=== PATIENT | female | born 1965 | race Caucasian/White ===

== ENCOUNTER 2022-06-08 14:31 | Inpatient (IN) ==
[2022-06-08] MEDS ORDERED: SODIUM CHLORIDE 0.9% 1000ML 1,000 ML IV ONE (14:53)
--- NOTE | 2022-06-08 15:05 | Emergency Department Note ---
ED Provider Note History of Present Illness Chief Complaint: Leg Injury/Pain Stated Complaint: JULIOBILE INFECTED R LEG Time Seen by Provider: 06/08/22 14:41 This is a 57-year-old female with a history of diabetes, high cholesterol, accompanied by her who presents with pain, redness, and swelling to her right lower leg. She noticed this last night and scratched it. This morning when she woke up she had a fever of 101 and noticed a significant amount of redness to the leg. She describes it as "tight" and somewhat painful when she walks. She also endorses some pain on the inner part of her thigh that started last night. She took some Tylenol for her fever this morning which seemed to improve it. She has had a little bit of a cough and congestion over the past few weeks but no new upper respiratory symptoms. She denies any chest pain or shortness of breath. She is not immunocompromised. Denies any new numbness or tingling in her extremities. Denies any history of neuropathy. Denies any other injuries to this leg. Home Medications Medication Instructions Recorded Confirmed Type atorvastatin 10 mg tablet 10 mg PO HS 06/08/22 06/08/22 History levothyroxine 125 mcg tablet 125 mcg PO DAILYBB 06/08/22 06/08/22 History metformin 750 mg tablet,extended 750 mg PO DAILY 06/08/22 06/08/22 History release 24 hr Allergies Allergy/AdvReac Type Severity Reaction Status Date / Time No Known Allergies Allergy Unverified 06/08/22 17:57 Past Med/Surg History Medical History Diabetes Hypercholesterolemia Surgical History No pertinent past surgical history Social History Smoking Status: Never smoker Preferred Language: Georgian Feels Safe at Home: Yes Physical Exam Vital Signs Vital Signs - 24 hr 06/08/22 14:35 06/08/22 14:53 06/08/22 17:00 Temperature 98.2 F 98.2 F Temperature Source Oral Oral Pulse Rate 111 H Pulse Rate [Apical] 101 H 103 H Pulse Rhythm [Apical] Regular Regular Pulse Strength [Apical] Normal Normal Respiratory Rate 17 20 20 Respiratory Effort / Characteristics Non-Labored Spontaneous Non-Labored Non-Labored Respiratory Depth Normal Normal Normal Respiratory Pattern Regular Regular Blood Pressure 159/72 H Blood Pressure [Right Arm] 180/86 H Blood Pressure Mean 101 Blood Pressure Mean [Right Arm] 117 Blood Pressure Position Sitting Pulse Oximetry 97 97 97 Oxygen Delivery Method Room Air Room Air Room Air Sepsis Recent Fever Within 48 Hours No Sepsis New/Unexplained Change in Mental Status No Sepsis Action Taken by Nursing No Action Required CONSTITUTIONAL: Well developed, well nourished, in no acute distress. HEAD: Normocephalic, atraumatic. EYES: conjunctivae normal, extraocular muscles intact. ENMT: External ears normal. Nose with normal external appearance, no congestion. Oral mucous membranes moist. Oropharynx normal. NECK: Full active range of motion. LYMPHATIC: No inguinal adenopathy RESPIRATORY: Breathing unlabored and symmetric. Lungs clear to auscultation bilaterally. No wheeze, rales, or rhonchi. CARDIOVASCULAR: Tachycardic rate and regular rhythm. No murmurs, rubs, or gallops. DP pulses 2+ bilaterally ABDOMEN: Normal bowel sounds. Soft, nontender, no peritonitis. No masses. MUSCULOSKELETAL: Right lower extremity: 1+ pitting edema in lower leg. The proximal leg is slightly more swollen compared to the contralateral. There is erythema, warmth, and tenderness with irregular borders located on the lower leg from the distal knee to the ankle extending circumferentially around the ankle region. This does not extend over the knee. Knee and ankle and toes with full range of motion. There is some tenderness in the medial thigh. SKIN: [place], warm, dry. NEUROLOGIC: Awake, alert, oriented. Gaze is conjugate. Face symmetric, speech normal. Moves head and all four extremities spontaneously. Sensation intact in bilateral lower extremities. PSYCHIATRIC: Appropriate. Normal affect Course Administered Medications Discontinued Medications Sodium Chloride (Nss 1000ml) 1,000 mls @ 999 mls/hr IV .Q1H1M ONE Stop: 06/08/22 15:53 Last Infusion: 06/08/22 16:31 Dose: 0 mls/hr Documented By: RSErica Admin: 06/08/22 15:33 Dose: 999 mls/hr Documented By: RSErica Sodium Chloride (Nss) 500 mls @ 999 mls/hr IV .Q31M ONE Stop: 06/08/22 17:13 Last Infusion: 06/08/22 17:21 Dose: 0 mls/hr Documented By: RSErica Admin: 06/08/22 16:54 Dose: 999 mls/hr Documented By: EMIR Ceftriaxone Sodium (Rocephin) 2,000 mg in 70 mls @ 140 mls/hr IV NOW STA Stop: 06/08/22 17:28 Last Infusion: 06/08/22 17:40 Dose: 0 mls/hr Documented By: Admin: 06/08/22 17:09 Dose: 140 mls/hr Documented By: EMIR Medical Decision Making Differential Diagnosis Cellulitis, DVT, vasculitis, necrotizing fasciitis, erythema migrans, sepsis, bacteremia, upper respiratory infection, PE, osteomyelitis, among other pathology Laboratory Data 06/08/22 15:34 06/08/22 15:34 Lab Results 06/08/22 06/08/22 06/08/22 Range/Units 15:34 15:34 15:34 WBC 17.49 H (4.8-10.8) K/ul RBC 4.56 (4.20-5.40) M/uL Hgb 13.1 (12.0-16.0) g/dl Hct 40.1 (37.0-47.0) % MCV 87.9 (80.0-100.0) fL MCH 28.7 (25.0-34.0) pg MCHC 32.7 (32.0-36.0) g/dL RDW Std Deviation 42.2 (36.4-46.3) fL RDW Coeff of Kam 13.2 (11.5-14.5) % Plt Count 204 (130-400) K/uL MPV 10.2 (9.4-12.4) fL Immature Gran % (Auto) 0.7 % Neut % (Auto) 89.1 % Lymph % (Auto) 5.4 % [place] % (Auto) 4.5 % Eos % (Auto) 0.1 % Baso % (Auto) 0.2 % Neut # (Auto) 15.59 H (1.40-6.50) K/uL Lymph # (Auto) 0.94 L (1.2-3.4) K/uL [place] # (Auto) 0.78 H (0.11-0.59) K/uL Eos # (Auto) 0.02 (0-0.50) K/uL Baso # (Auto) 0.03 (0-0.2) K/uL Immature Gran # (Auto) 0.13 (0.01-0.20) K/uL Sodium 136 (136-145) mmol/L Potassium 3.4 L (3.5-5.1) mmol/L Chloride 102 (98-107) mmol/L Carbon Dioxide 25 (21-32) mmol/L Anion Gap 9 (3-11) BUN 18 (6-23) mg/dl Creatinine 0.91 (0.6-1.2) mg/dl Est Cr Clr Drug Dosing 82.2 ml/min Est GFR ( Amer) 81.2 ml/min Est GFR (Non-Af Amer) 70.0 ml/min BUN/Creatinine Ratio 19.8 (10-20) Glucose 160 H (70-99(Fasting)) mg/dl Lactate (0.4-2.0) mmol/L Calcium 9.2 (8.5-10.1) mg/dl Total Bilirubin 0.7 (0.2-1.0) mg/dl AST 13 (13-39) U/L ALT 13 (7-52) U/L Alkaline Phosphatase 70 (34-104) U/L Total Protein 7.2 (6.0-8.3) gm/dl Albumin 4.4 (3.4-5.0) gm/dl Globulin 2.8 (2.5-4.0) gm/dl Albumin/Globulin Ratio 1.6 (0.9-2) Procalcitonin 0.38 (0-0.5) ng/ml 06/08/22 Range/Units 15:34 WBC (4.8-10.8) K/ul RBC (4.20-5.40) M/uL Hgb (12.0-16.0) g/dl Hct (37.0-47.0) % MCV (80.0-100.0) fL MCH (25.0-34.0) pg MCHC (32.0-36.0) g/dL RDW Std Deviation (36.4-46.3) fL RDW Coeff of Kam (11.5-14.5) % Plt Count (130-400) K/uL MPV (9.4-12.4) fL Immature Gran % (Auto) % Neut % (Auto) % Lymph % (Auto) % [place] % (Auto) % Eos % (Auto) % Baso % (Auto) % Neut # (Auto) (1.40-6.50) K/uL Lymph # (Auto) (1.2-3.4) K/uL [place] # (Auto) (0.11-0.59) K/uL Eos # (Auto) (0-0.50) K/uL Baso # (Auto) (0-0.2) K/uL Immature Gran # (Auto) (0.01-0.20) K/uL Sodium (136-145) mmol/L Potassium (3.5-5.1) mmol/L Chloride (98-107) mmol/L Carbon Dioxide (21-32) mmol/L Anion Gap (3-11) BUN (6-23) mg/dl Creatinine (0.6-1.2) mg/dl Est Cr Clr Drug Dosing ml/min Est GFR ( Amer) ml/min Est GFR (Non-Af Amer) ml/min BUN/Creatinine Ratio (10-20) Glucose (70-99(Fasting)) mg/dl Lactate 1.5 (0.4-2.0) mmol/L Calcium (8.5-10.1) mg/dl Total Bilirubin (0.2-1.0) mg/dl AST (13-39) U/L ALT (7-52) U/L Alkaline Phosphatase (34-104) U/L Total Protein (6.0-8.3) gm/dl Albumin (3.4-5.0) gm/dl Globulin (2.5-4.0) gm/dl Albumin/Globulin Ratio (0.9-2) Procalcitonin (0-0.5) ng/ml Imaging Data Radiologist's Impression: Venous Doppler Study 06/08/22 14:53 US venous doppler LE RT HISTORY: 57 years-old Female pain swelling and redness acute pain and swelling of the right lower extremity COMPARISON: None TECHNIQUE: Multiple real-time sonographic images of the right lower extremity deep venous structures were obtained assessing grayscale appearance, color and spectral flow. FINDINGS: Normal flow, compressibility, phasicity and augmentation. Indeterminate 3.4 x 1.1 cm right inguinal chain lymph node with fatty hilum, likely benign. Mild nonspecific subcutaneous edema. IMPRESSION: No sonographic evidence of deep venous thrombosis. ACT 112: Negative or not required by law. The above report was generated using voice recognition software. It may contain grammatical, syntax or spelling errors. Electronically signed by: Familia Velazquez M.D. 06/08/2022 4:38 PM MDM Narrative This is a 57-year-old female who presents to the emergency department with pain, redness, swelling to the right lower leg that began yesterday as an itchy area that she admits to scratching yesterday. She endorses a fever of 101 this morning. On initial exam, she is overall well-appearing in no acute distress. Her heart rate initially is 110 and she remained tachycardic during my evaluation. Denies any chest pain or shortness of breath, oxygen saturation 97% on room air. She does have a large area of erythema, warmth, tenderness, and edema to the lower leg, as well as some tenderness in the medial thigh. Neurovascularly intact. She is afebrile here though took Tylenol earlier today. Differential diagnosis considered as above. An IV was inserted, IV fluids were initiated. Blood cultures were ordered. Patient declined anything for pain. An ultrasound of the right lower extremity was obtained demonstrating no DVT however there was an indeterminate 3.4 x 1.1 cm right inguinal chain lymph node with fatty hilum, likely benign with some mild nonspecific subcutaneous edema. Question if lymph nodes could be reactive in nature and if this could be contributing to her right proximal medial thigh pain Labs show a leukocytosis at 17.49. Glucose 160. Normal renal function. No electrolyte disturbance. Lactate is normal Despite IV fluids, patient remained tachycardic with a heart rate of 101 at time of reevaluation. IV ceftriaxone administered for suspected cellulitis. Given her history of diabetes, persistent tachycardia despite sepsis level fluid administration, rapid progression, fever this morning, and leukocytosis of 17.49, admission to the hospital was discussed and recommended. Patient was agreeable with this plan. I discussed this case with Jennyfer Montano PA-C with the [facility] hospitalist service who will admit the patient for ongoing management. Impression Cellulitis of leg, right, Leukocytosis Discharge Plan Visit Data Chief Complaint: Leg Injury/Pain Stated Complaint: POSSBILE INFECTED R LEG ED Provider: Serg Oropeza ED Midlevel Provider: Juan Manuel Smith Discharge Problem: Cellulitis of leg, right, Leukocytosis Patient Disposition: Admitted As Inpatient Condition: Fair Forms Stand Alone Forms: My [facility] Prescriptions Prescriptions: No Action atorvastatin 10 mg tablet 10 mg PO HS levothyroxine 125 mcg tablet 125 mcg PO DAILYBB metformin 750 mg tablet extended release 24 hr 750 mg PO DAILY Referrals Referrals: PCP,NO [Physician] -
[2022-06-08 15:54] LABS: Basophils # (auto) 0.03 K/uL (0-0.2); Basophils % (auto) 0.2 %; Eosinophils # (auto) 0.02 K/uL (0-0.50); Eosinophils % (auto) 0.1 %; Hematocrit (blood only) 40.1 % (37.0-47.0); Hemoglobin 13.1 g/dl (12.0-16.0); Immature Granulocytes # (auto) 0.13 K/uL (0.01-0.20); Immature Granulocytes % (auto) 0.7 %; Lymphocytes # (auto) 0.94 K/uL (1.2-3.4); Lymphocytes % (auto) 5.4 %; Mean Corpuscular Hemoglobin 28.7 pg (25.0-34.0); Mean Corpuscular Hgb Conc 32.7 g/dL (32.0-36.0); Mean Corpuscular Volume 87.9 fL (80.0-100.0); Mean Platelet Volume 10.2 fL (9.4-12.4); Monocytes # (auto) 0.78 K/uL (0.11-0.59); Monocytes % (auto) 4.5 %; Neutrophils # (auto) 15.59 K/uL (1.40-6.50); Neutrophils % (auto) 89.1 %; Platelet Count 204 K/uL (130-400); RDW Coefficient of Variation 13.2 % (11.5-14.5); RDW Standard Deviation 42.2 fL (36.4-46.3); Red Blood Count 4.56 M/uL (4.20-5.40); White Blood Count 17.49 K/ul (4.8-10.8)
[2022-06-08 16:08] LABS: Albumin Globulin Ratio 1.6 (0.9-2); Albumin Level 4.4 gm/dl (3.4-5.0); BUN Creatinine Ratio 19.8 (10-20); Bilirubin,Total 0.7 mg/dl (0.2-1.0); Calcium 9.2 mg/dl (8.5-10.1); Creatinine Clr Calc Pharmacy 82.2 ml/min; Est GFR (African American) 81.2 ml/min; Globulin 2.8 gm/dl (2.5-4.0); Potassium 3.4 mmol/L (3.5-5.1); Total Protein 7.2 gm/dl (6.0-8.3)
--- NOTE | 2022-06-08 16:40 | Ultrasound Report ---
US venous doppler LE RT HISTORY: 57 years-old Female pain swelling and redness acute pain and swelling of the right lower ex tremity COMPARISON: None TECHNIQUE: Multiple real-time sonographic images of the right lower extremity deep venous structures were obtained assessing grayscale appearance, color and spectral flow. FINDINGS: Normal flow, compressibility, phasicity and augmentation. Indeterminate 3.4 x 1.1 cm right inguinal c rose lymph node with fatty hilum, likely benign. Mild nonspecific subcutaneous edema. IMPRESSION: No sonographic evidence of deep venous thrombosis. ACT 112: Negative or not required by law. The above report was generated using voice recognition software. It may contain grammatical, syntax o r spelling errors. Electronically signed by: Familia Velazquez M.D. 06/08/2022 4:38 PM
[2022-06-08] MEDS ORDERED: SODIUM CHLORIDE 0.9% 500 ML IV ONE (16:43)
[2022-06-08] MEDS ORDERED: cefTRIAXone SODIUM 2,000 MG/70 ML BAG IV STA (16:59)
--- NOTE | 2022-06-08 17:44 | History & Physical Report ---
Date of Service June 08, 2022 Assessment & Plan (1) Sepsis: (2) Cellulitis of leg, right: (3) Leukocytosis: Plan: - Admit to med surg with tele - Meets sepsis with fever of 101, leukocytosis 17.49, rapidly progressed overnight - Follow blood cultures, lactate 1.5 on admission, procal 0.38 - Given ceftriaxone in the ER, will switch to cefepime IV and vanc IV given . Given 1.5 L NSS in ER. - Cr./BUN stable - BP noted to be elevated without hx of hypertension, possibly situational vs under rador and not known about? Will stop IVFs now and monitor. Will place IV hydralazine prn for overnight. Consider initiation of low dose lisinopril if hypertensions persists. - Check MRSA nasal swab and will dc if negative - Skin region affected outlined at bedside to monitor for improvement (4) Diabetes: Plan: - Check A1C, hold home metformin, will place on ISS with accuchecks achs (5) Hypercholesterolemia: Plan: - Check lipid panel with am labs, cont atorvastatin HS (6) Morbid obesity: Plan: - BMI of 46.7, diet and exercise to be encouraged throughout hospital stay and at time of dischage (7) Hypothyroidism: Plan: - Cont levothyroxine, check TSH DVT ppx: teds, scds, ambulatory CODE: Full Dispo: From home, likely to remain in the hospital x 1-2 days A total of 75 minutes were spent with greater than 50% of that time face to face with the patient, personally reviewing all current laboratories, imaging studies, past medication reconciliation, outpatient chart review, and discussion with specialists to collaborate care for the patient with attending. Please see attending documentation for corrections and/or additions. History of Present Illness Chief Complaint: RLE redness Primary Care Provider: Amie Zapata This is a 57-year-old female with PMHx of DM type II, obesity with BMI of 46.7, hypothyroidism, HLD who presents to the emergency room with acute onset of right lower extremity redness, swelling and pain. She notes that last evening her skin was a bit itchy, and so was scratching at her right lower leg. She did not notice at that point time if it was red and was not painful. This morning she noticed her leg with worsening redness which then progressed to encompass the majority of her moreno as well as the back of her calf muscle. Her pain is mild. She had a fever of Tmax 101 today, and took ibuprofen 600 mg as well as Tylenol 1500 mg. She could ambulate into the ER but describes mild pain associated with weightbearing due to the swelling and in her leg. She has never had a bout of cellulitis before. To her knowledge her glucose has been in good control. Pts is with her at bedside and supports the history. WBC count is 17.49 on admission. Doppler ultrasound is negative for DVT in the RLE. Currently afebrile, tachycardic with heart rate in the low 100s. Surgical history: History of 33 years ago, no other surgical procedures Family history: Mother: ovarian and breast cancer at early age s/p large ovarian tumor resection, A&W Father: heart disorder, pacemaker insertion in his 70s, A&W Social history: Patient denies any tobacco use, alcohol use illicit drug or marijuana use in the past. Lives with her in [place], states that she moved to the area about 3 years ago and continues to follow with PCP and do boys as she has not had any medical issues/needs. Allergies Allergy/AdvReac Type Severity Reaction Status Date / Time No Known Allergies Allergy Unverified 06/08/22 17:57 Home Medications Medication Instructions Recorded Confirmed Type atorvastatin 10 mg tablet 10 mg PO HS 06/08/22 06/08/22 History levothyroxine 125 mcg tablet 125 mcg PO DAILYBB 06/08/22 06/08/22 History metformin 750 mg tablet,extended 750 mg PO DAILY 06/08/22 06/08/22 History release 24 hr Past Med/Surg History Medical History (Updated 06/08/22 @ 19:11 by Ronel Montano PA-C) Diabetes Hypercholesterolemia Surgical History (Updated 06/08/22 @ 18:03 by Ronel Montano PA-C) Hx of section No pertinent past surgical history Family History (Updated 06/08/22 @ 18:04 by Ronel Montano PA-C) Father Heart disease Mother Breast cancer Ovarian cancer Social History (Updated 06/08/22 @ 18:05 by Ronel Montano PA-C) Smoking Status: Never smoker Do You Dip or Chew Tobacco: No; Hx Alcohol Use: No Hx Substance Use: No Preferred Language: Maltese Communication Ability: Effective Jet Worker Required: No Beliefs That Will Affect Care: None Current Living Situation: Spouse and Family Feels Safe at Home: Yes Safety Concerns: Feels Safe At This Time Assistive Devices: None Review of Systems Review of Systems: Constitutional: + fever as per HPI, + chills, no sweats Eyes: No diplopia, no worsening or blurred vision ENT: normal hearing, no trouble swallowing Respiratory: No cough, sputum, dyspnea at rest or on exertion Cardiovascular: No chest pain, tightness or palpitations Abdomen: No pain, nausea, vomiting, diarrhea or constipation Musculoskeletal: No joint pain, calf pain, swelling Neurologic: No weakness, numbness/tingling, or balance problems Psychiatric: No anxiety or depression Skin: No rash or itch Physical Exam Physical Exam: General: awake, alert, no apparent distress, morbidly obese with BMI of 46.7 Head: Normocephalic, atraumatic ENT: PERRL, EOMI, no pharyngeal exudate, mucous membranes moist Chest: Clear to auscultation, on room air, no adventitious breath sounds Cardiac: Regular rate and rhythm, no murmur, no JVD, normal peripheral pulses, good capillary refill Abdominal: NABS x 4 quadrants, soft, nondistended, nontender to palpation, no rebound or guarding Extremities: RLE with erythema extending over the moreno and around the calf, involves the medial ankle slightly, does not involve the foot, and does not extend above the knee. No open area available to culture. Normal inspection, no peripheral edema or erythema, calfs nontender to palpation Psych: Normal mood and affect Neuro: AAO x 3, strength intact bilaterally and rated 5/5, no motor deficits, speech is clear, no peripheral sensory deficits Results & Data Results & Data ([facility]) Vital Signs (Past 12 Hours) Vital Signs Temp Pulse Pulse Resp BP BP Pulse Ox 06/08/22 17:00 103 H 20 180/86 H 97 06/08/22 14:53 36.8 C 101 H 20 97 06/08/22 14:35 36.8 C 111 H 17 159/72 H 97 O2 Del Method 06/08/22 17:00 Room Air 06/08/22 14:53 Room Air 06/08/22 14:35 Room Air Laboratory Results 06/08/22 15:34 Aerobic Blood Culture - Pending Blood Anaerobic Blood Culture - Pending 06/08/22 15:34 Aerobic Blood Culture - Pending Blood Anaerobic Blood Culture - Pending 06/08/22 06/08/22 06/08/22 15:34 15:34 15:34 WBC RBC Hgb Hct MCV MCH MCHC RDW Std Deviation RDW Coeff of Kam Plt Count MPV Immature Gran % (Auto) Neut % (Auto) Lymph % (Auto) [place] % (Auto) Eos % (Auto) Baso % (Auto) Neut # (Auto) Lymph # (Auto) [place] # (Auto) Eos # (Auto) Baso # (Auto) Immature Gran # (Auto) Sodium 136 Potassium 3.4 L Chloride 102 Carbon Dioxide 25 Anion Gap 9 BUN 18 Creatinine 0.91 Est Cr Clr Drug Dosing 82.2 Est GFR ( Amer) 81.2 Est GFR (Non-Af Amer) 70.0 BUN/Creatinine Ratio 19.8 Glucose 160 H Lactate 1.5 Calcium 9.2 Total Bilirubin 0.7 AST 13 ALT 13 Alkaline Phosphatase 70 Total Protein 7.2 Albumin 4.4 Globulin 2.8 Albumin/Globulin Ratio 1.6 Procalcitonin 0.38 06/08/22 15:34 WBC 17.49 H RBC 4.56 Hgb 13.1 Hct 40.1 MCV 87.9 MCH 28.7 MCHC 32.7 RDW Std Deviation 42.2 RDW Coeff of Kam 13.2 Plt Count 204 MPV 10.2 Immature Gran % (Auto) 0.7 Neut % (Auto) 89.1 Lymph % (Auto) 5.4 [place] % (Auto) 4.5 Eos % (Auto) 0.1 Baso % (Auto) 0.2 Neut # (Auto) 15.59 H Lymph # (Auto) 0.94 L [place] # (Auto) 0.78 H Eos # (Auto) 0.02 Baso # (Auto) 0.03 Immature Gran # (Auto) 0.13 Sodium Potassium Chloride Carbon Dioxide Anion Gap BUN Creatinine Est Cr Clr Drug Dosing Est GFR ( Amer) Est GFR (Non-Af Amer) BUN/Creatinine Ratio Glucose Lactate Calcium Total Bilirubin AST ALT Alkaline Phosphatase Total Protein Albumin Globulin Albumin/Globulin Ratio Procalcitonin Diagnostic Findings Venous Doppler Study 06/08/22 14:53 US venous doppler LE RT HISTORY: 57 years-old Female pain swelling and redness acute pain and swelling of the right lower extremity COMPARISON: None TECHNIQUE: Multiple real-time sonographic images of the right lower extremity deep venous structures were obtained assessing grayscale appearance, color and spectral flow. FINDINGS: Normal flow, compressibility, phasicity and augmentation. Indeterminate 3.4 x 1.1 cm right inguinal chain lymph node with fatty hilum, likely benign. Mild nonspecific subcutaneous edema. IMPRESSION: No sonographic evidence of deep venous thrombosis. ACT 112: Negative or not required by law. The above report was generated using voice recognition software. It may contain grammatical, syntax or spelling errors. Electronically signed by: Familia Velazquez M.D. 06/08/2022 4:38 PM Code Status & VTE Plan Code Status Full code - discussed with patient at bedside along with . Supervising Physician Co-Signing Physician Notes Patient was seen and examined independently. Chart reviewed. Case discussed with CHRISTOPHE. Agree with assessment and plan as above. Exam looks most consistent with strep cellulitis. Can likely de-escalate in next 24-48 hours once sepsis resolves. (3) Leukocytosis Leukocytosis type: unspecified Qualified Code(s): D72.829 - Elevated white blood cell count, unspecified
[2022-06-08] MEDS ORDERED: VANCOMYCIN CONSULT ACTIVE PRN (17:50)
[2022-06-08 18:14] LABS: Influenza A virus by PCR Negative (Neg); Influenza B virus by PCR Negative (Neg); RSV by PCR Negative (Neg); SARS CoV2 RNA(COVID-19) Ceph NEGATIVE (Negative)
[2022-06-08] MEDS ORDERED: SODIUM CHLORIDE 0.9% 1000ML 1,000 ML IV SCH (19:00)
[2022-06-08] MEDS ORDERED: VANCOMYCIN HCL 2,250 MG in SODIUM CHLORIDE 0.9% 500 ML IV ONE (19:30)
[2022-06-08] MEDS ORDERED: CEFEPIME 2,000 MG in SYRINGE 0 ML IV ONE (19:30)
[2022-06-08] MEDS ORDERED: hydrALAZINE HCL 20 MG/ML VIAL IV PRN (19:51)
[2022-06-08] MEDS ORDERED: CARBOHYDRATES FOR HYPOGLYCEMIA PO PRN (21:43)
[2022-06-08] MEDS ORDERED: GLUCOSE 40% GEL 15 GM TUBE PO PRN (21:43)
[2022-06-08] MEDS ORDERED: DEXTROSE 50% 50 ML SYRINGE IV PRN (21:43)
[2022-06-08] MEDS ORDERED: ONDANSETRON INJ 2 MG/ML 2 ML VIAL IV PRN (21:43)
[2022-06-08] MEDS ORDERED: GLUCOSE 10 TAB/TUBE PO PRN (21:43)
[2022-06-08] MEDS ORDERED: GLUCAGON FOR INJ 1 MG VIAL SQ PRN (21:43)
[2022-06-08] MEDS: ACETAMINOPHEN 325 MG TAB PO PRN (22:16)
[2022-06-08] MEDS: ATORVASTATIN 10 MG TAB PO SCH (22:16)
[2022-06-08] MEDS: INSULIN ASPART PER UNIT SC SCH (22:16)
[2022-06-09] MEDS: LEVOTHYROXINE SODIUM 125 MCG TABLET PO SCH (06:08)
[2022-06-09] MEDS: ACETAMINOPHEN 325 MG TAB PO PRN ×4 (06:10→23:38)
[2022-06-09 07:31] LABS: Calcium 8.6 mg/dl (8.5-10.1); Magnesium 1.8 mg/dl (1.7-2.4); Potassium 3.6 mmol/L (3.5-5.1)
[2022-06-09 07:37] LABS: BUN Creatinine Ratio 17.9 (10-20); Chol HDL Ratio 2.6 (0-5); Creatinine Clr Calc Pharmacy 112.5 ml/min; Est GFR (African American) 113.1 ml/min; Est GFR (Non-African American) 97.6 ml/min; Phosphorus 1.7 mg/dl (2.5-4.9)
[2022-06-09] MEDS: CEFEPIME 2,000 MG in SYRINGE 0 ML IV SCH ×2 (07:51→20:17)
[2022-06-09] MEDS: INSULIN ASPART PER UNIT SC SCH ×2 (08:35→11:42)
[2022-06-09 09:02] LABS: Hematocrit (blood only) 38.4 % (37.0-47.0); Hemoglobin 12.6 g/dl (12.0-16.0); Mean Corpuscular Hemoglobin 29.1 pg (25.0-34.0); Mean Corpuscular Hgb Conc 32.8 g/dL (32.0-36.0); Mean Corpuscular Volume 88.7 fL (80.0-100.0); Mean Platelet Volume 10.9 fL (9.4-12.4); Platelet Count 194 K/uL (130-400); Platelet Estimate Normal (Normal); RDW Coefficient of Variation 13.3 % (11.5-14.5); RDW Standard Deviation 43.1 fL (36.4-46.3); Red Blood Count 4.33 M/uL (4.20-5.40)
[2022-06-09 09:03] LABS: Estimated Average Glucose 151 mg/dl; Hemoglobin A1C 6.9 % (4.5-5.6)
[2022-06-09] MEDS ORDERED: VANCOMYCIN HCL 1,250 MG in SODIUM CHLORIDE 0.9% 250 ML IV SCH (10:00)
[2022-06-09] MEDS: POT PHOSPHATE MONOBASIC W/ SOD TAB PO SCH ×4 (10:15→20:21)
--- NOTE | 2022-06-09 13:56 | Pharmacy Report ---
Pharmacy PK ABX Note - Date of Service June 09, 2022 - Assessment and Plan Assessment 57 year old F receiving vancomycin/cefepime for treatment of cellulitis, possible sepsis. Pertinent microbiologic data includes: blood cultures pending, leukocytosis, tmx 38. Day # 2 of antimicrobial therapy. Plan Vancomycin * Loading dose: 2250 mg IV x 1 * Maintenance dose: 1250 mg IV every 12 hours * Regimen is predicted to achieve target AUC/LUPIS of 400-600 mg/L.hr * Random level ordered for 3/1 AM Pharmacy will continue to follow and will adjust dose/frequency as necessary. Thank you. Pharmacy has transitioned to AUC monitoring for vancomycin. AUC/LUPIS is the preferred PK/PD target and is associated with decreased risk of nephrotoxicity compared to traditional trough targets.
--- NOTE | 2022-06-09 14:36 | Hospitalist Progress Note ---
Date of Service June 09, 2022 Assessment & Plan (1) Sepsis: Plan: improved with IVF and broad spectrum abx. (2) Cellulitis of leg, right: Plan: - Met sepsis criteria with fever of 101, leukocytosis 17.49, rapidly progressed overnight - Follow blood cultures, lactate 1.5 on admission, procal 0.38 - Given ceftriaxone in the ER, will switch to cefepime IV and vanc IV given . Given 1.5 L NSS in ER. - Cr./BUN stable - BP noted to be elevated without hx of hypertension, possibly situational--> IVF were then stopped. Consider initiation of low dose lisinopril if hypertensions persists. -there is some natural spread along the lymph channels into the groin as the infection is being cleared. This is not a "worsening" of the cellulitis. Cont cefepime and stop vanc as she is MRSA negative. (3) Diabetes: Plan: - Check A1C, hold home metformin, patient prefers to avoid insulin at this time. Cont BSG checks and limiting carbohydrates with meals. (4) Hypercholesterolemia: Plan: chronic, stable. Cont home medications. (5) Morbid obesity: Plan: - BMI of 46.7, diet and exercise to be encouraged throughout hospital stay and at time of dischage (6) Hypophosphatemia: Plan: Oral replacement given today. Repeat level in am. (7) Hypothyroidism: Plan: chronic, stable, cont home levothyroxine. DVT ppx: Lovenox CODE: Full Dispo: From home, likely to remain in the hospital x 1-2 days, prefer 24 hours fever free prior to discharge. Connie Boswell DO [facility] Hospitalist Admission and Anticipated Discharge Date Admission Date: June 08, 2022 Subjective 57 yo F with RLE cellulitis Thinks it is from having dry skin and scratching around her lower leg. She is still febrile this am but reports feeling somewhat better on therapy. She is eating and otherwise reports no issues. Review of Systems Review of Systems: All systems were reviewed and negative except as indicated above. Physical Exam Physical Exam: CONSTITUTIONAL: obese, vitals as above, generally well-appearing, NAD EYES: normal conjunctivae, no scleral icterus ENT: external ear and nose normal, MMM NECK: trachea midline RESPIRATORY: clear to auscultation bilaterally, no crackles, rales or wheezes, normal respiratory effort CARDIOVASCULAR: regular rate and rhythm, S1 and 2 heard without murmurs, gallops or rubs, no JVD, no peripheral edema CHEST: inspection of chest was normal GASTROINTESTINAL: normal bowel sounds, soft, nontender, ND, no guarding MUSCULOSKELETAL: strength 5/5 throughout, head is normocephalic and atraumatic SKIN: warm and dry, spreading erythema along the medial right leg up into the groin. RLE with larger area of warm erythematous skin that is irritated with no clear breakdown of the skin both anterior ly and posteriorly. NEUROLOGIC: CN 2-12 grossly intact, no sensory deficit, normal cognition, normal speech, no tremor PSYCHIATRIC: alert cooperative and oriented to person, place and time. Results & Data Results & Data ([facility]) Vital Signs (Past 12 Hours) Vital Signs Temp Pulse Pulse Resp BP Pulse Ox Pulse Ox 06/09/22 13:00 95 06/09/22 11:27 36.6 C 95 H 18 116/74 96 06/09/22 09:00 95 06/09/22 07:27 38.0 C H 108 H 18 137/81 95 06/09/22 06:59 108 H 06/09/22 04:00 36.9 C 105 H 18 129/74 96 O2 Del Method O2 Del Method 06/09/22 13:00 Room Air 06/09/22 11:27 Room Air 06/09/22 09:00 Room Air 06/09/22 07:27 Room Air 06/09/22 06:59 06/09/22 04:00 Room Air Laboratory Results Short CBC 06/08/22 06/09/22 Range/Units 15:34 07:03 WBC 17.49 H 15.70 H (4.8-10.8) K/ul Hgb 13.1 12.6 (12.0-16.0) g/dl Hct 40.1 38.4 (37.0-47.0) % Plt Count 204 194 (130-400) K/uL BMP 06/08/22 06/09/22 15:34 07:03 Sodium 136 134 L Potassium 3.4 L 3.6 Chloride 102 104 Carbon Dioxide 25 22 BUN 18 12 Creatinine 0.91 0.67 Glucose 160 H 164 H Calcium 9.2 8.6 Liver Function 06/08/22 Range/Units 15:34 Total Bilirubin 0.7 (0.2-1.0) mg/dl AST 13 (13-39) U/L ALT 13 (7-52) U/L Alkaline Phosphatase 70 (34-104) U/L Albumin 4.4 (3.4-5.0) gm/dl Medications Administered Current Inpatient Medications Acetaminophen (Acetaminophen 325 Mg Tab) 650 mg PO Q4H PRN PRN Reason: Moderate Pain (Scale 4, 5, 6) Stop: 07/08/22 21:42 Last Admin: 06/09/22 12:53 Dose: 650 mg Atorvastatin Calcium (Atorvastatin 10 Mg Tab) 10 mg PO HS LULI Stop: 07/08/22 20:59 Last Admin: 06/08/22 22:16 Dose: 10 mg Dextrose (Dextrose 50% 50 Ml Syringe) 25 - 50 ml IV UD PRN; Protocol PRN Reason: Hypoglycemia Protocol Stop: 07/08/22 21:42 Glucagon (Glucagon For Inj 1 Mg Vial) 1 mg SQ UD PRN; Protocol PRN Reason: Hypoglycemia Protocol Stop: 07/08/22 21:42 Glucose (Glucose 10 Tab/Tube) 4 - 8 tab PO UD PRN; Protocol PRN Reason: Hypoglycemia Treatment Stop: 07/08/22 21:42 Glucose (Glucose 40% Gel 15 Gm Tube) 15 - 30 gm PO UD PRN; Protocol PRN Reason: Hypoglycemia Protocol Stop: 07/08/22 21:42 Cefepime HCl 2,000 mg/ Syringe 20 mls @ 5 mls/min IV Q12H LULI; Protocol Stop: 06/16/22 07:29 Last Admin: 06/09/22 07:51 Dose: 5 mls/min Vancomycin HCl 1,250 mg/ (Sodium Chloride) 275 mls @ 200 mls/hr IV Q12H LULI; Protocol Stop: 06/16/22 09:59 Last Infusion: 06/09/22 11:28 Dose: Infused Levothyroxine Sodium (Levothyroxine Sodium 125 Mcg Tablet) 125 mcg PO DAILYBB LULI Stop: 07/09/22 06:29 Last Admin: 06/09/22 06:08 Dose: 125 mcg Miscellaneous (Carbohydrates For Hypoglycemia ) 15 - 30 gm PO UD PRN PRN Reason: Hypoglycemia Protocol Stop: 07/08/22 21:42 Miscellaneous Information (Vancomycin Consult Active) 1 each N/A UD PRN PRN Reason: Consult Stop: 07/08/22 17:49 Ondansetron HCl (Ondansetron Inj 2 Mg/Ml 2 Ml Vial) 4 mg IV Q4H PRN PRN Reason: Nausea And Vomiting Stop: 07/08/22 21:42 Potassium Phosphate (Pot Phosphate Monobasic W/ Sod Tab) 2 tab PO QID LULI Stop: 06/11/22 08:59 Last Admin: 06/09/22 12:54 Dose: 2 tab
[2022-06-09] MEDS ORDERED: VANCOMYCIN HCL 1,750 MG in SODIUM CHLORIDE 0.9% 500 ML IV SCH (19:30)
[2022-06-09] MEDS: ATORVASTATIN 10 MG TAB PO SCH (20:21)
[2022-06-09] MEDS: ENOXAPARIN INJ 40 MG/0.4 ML SYR SQ SCH (20:22)
[2022-06-10] MEDS: LEVOTHYROXINE SODIUM 125 MCG TABLET PO SCH (05:47)
[2022-06-10] MEDS: CEFEPIME 2,000 MG in SYRINGE 0 ML IV SCH (06:35)
[2022-06-10 06:51] LABS: Basophils # (auto) 0.03 K/uL (0-0.2); Basophils % (auto) 0.2 %; Eosinophils # (auto) 0.16 K/uL (0-0.50); Eosinophils % (auto) 1.1 %; Hemoglobin 12.2 g/dl (12.0-16.0); Immature Granulocytes % (auto) 0.7 %; Lymphocytes # (auto) 1.17 K/uL (1.2-3.4); Lymphocytes % (auto) 7.8 %; Mean Corpuscular Hemoglobin 28.6 pg (25.0-34.0); Mean Corpuscular Volume 86.9 fL (80.0-100.0); Mean Platelet Volume 10.9 fL (9.4-12.4); Monocytes # (auto) 0.62 K/uL (0.11-0.59); Monocytes % (auto) 4.2 %; Neutrophils # (auto) 12.84 K/uL (1.40-6.50); Platelet Count 209 K/uL (130-400); RDW Coefficient of Variation 13.2 % (11.5-14.5); RDW Standard Deviation 41.1 fL (36.4-46.3); Red Blood Count 4.26 M/uL (4.20-5.40); White Blood Count 14.92 K/ul (4.8-10.8)
[2022-06-10 07:19] LABS: BUN Creatinine Ratio 16.9 (10-20); Calcium 8.8 mg/dl (8.5-10.1); Creatinine Clr Calc Pharmacy 115.9 ml/min; Est GFR (African American) 114.2 ml/min; Est GFR (Non-African American) 98.6 ml/min; Phosphorus 2.7 mg/dl (2.5-4.9); Potassium 3.3 mmol/L (3.5-5.1)
[2022-06-10] MEDS ORDERED: POTASSIUM CHLORIDE CRTAB 20 MEQ TABCR PO STA (08:18)
[2022-06-10] MEDS: ENOXAPARIN INJ 40 MG/0.4 ML SYR SQ SCH (08:27)
--- NOTE | 2022-06-10 10:30 | Discharge Summary ---
Discharge Summary Date of Service June 10, 2022 Admission HPI Per Admitting Provider This is a 57-year-old female with PMHx of DM type II, obesity with BMI of 46.7, hypothyroidism, HLD who presents to the emergency room with acute onset of right lower extremity redness, swelling and pain. She notes that last evening her skin was a bit itchy, and so was scratching at her right lower leg. She did not notice at that point time if it was red and was not painful. This morning she noticed her leg with worsening redness which then progressed to encompass the majority of her moreno as well as the back of her calf muscle. Her pain is mild. She had a fever of Tmax 101 today, and took ibuprofen 600 mg as well as Tylenol 1500 mg. She could ambulate into the ER but describes mild pain associated with weightbearing due to the swelling and in her leg. She has never had a bout of cellulitis before. To her knowledge her glucose has been in good control. Pts is with her at bedside and supports the history. WBC count is 17.49 on admission. Doppler ultrasound is negative for DVT in the RLE. Currently afebrile, tachycardic with heart rate in the low 100s. Surgical history: History of 33 years ago, no other surgical procedures Family history: Mother: ovarian and breast cancer at early age s/p large ovarian tumor resection, A&W Father: heart disorder, pacemaker insertion in his 70s, A&W Social history: Patient denies any tobacco use, alcohol use illicit drug or marijuana use in the past. Lives with her in [place], states that she moved to the area about 3 years ago and continues to follow with PCP and do boys as she has not had any medical issues/needs. Principal Dx & Hospital Course #1 = Principal Diagnosis (1) Sepsis: improved with IVF and broad spectrum abx. (2) Cellulitis of leg, right: - Met sepsis criteria with fever of 101, leukocytosis 17.49, rapidly progressed overnight - Follow blood cultures, lactate 1.5 on admission, procal 0.38 - Given ceftriaxone in the ER, will switch to cefepime IV and vanc IV given . Given 1.5 L NSS in ER. - Cr./BUN stable - BP noted to be elevated without hx of hypertension, possibly situational--> IVF were then stopped. Consider initiation of low dose lisinopril if hypertensions persists. -there is some natural spread along the lymph channels into the groin as the infection is being cleared. This is not a "worsening" of the cellulitis. Cont cefepime and stop vanc as she is MRSA negative. (3) Diabetes: - Check A1C, hold home metformin, patient prefers to avoid insulin at this time. Cont BSG checks and limiting carbohydrates with meals. (4) Hypercholesterolemia: chronic, stable. Cont home medications. (5) Morbid obesity: - BMI of 46.7, diet and exercise to be encouraged throughout hospital stay and at time of dischage (6) Hypophosphatemia: Oral replacement given today. Repeat level in am. (7) Hypothyroidism: chronic, stable, cont home levothyroxine. DVT ppx: Lovenox CODE: Full Dispo: From home, likely to remain in the hospital x 1-2 days, prefer 24 hours fever free prior to discharge. Connie Boswell DO [facility] Hospitalist Discharge Exam CONSTITUTIONAL: obese, vitals as above, generally well-appearing, NAD EYES: normal conjunctivae, no scleral icterus ENT: external ear and nose normal, MMM NECK: trachea midline RESPIRATORY: clear to auscultation bilaterally, no crackles, rales or wheezes, normal respiratory effort CARDIOVASCULAR: regular rate and rhythm, S1 and 2 heard without murmurs, gallops or rubs, no JVD, no peripheral edema CHEST: inspection of chest was normal GASTROINTESTINAL: normal bowel sounds, soft, nontender, ND, no guarding MUSCULOSKELETAL: strength 5/5 throughout, head is normocephalic and atraumatic SKIN: warm and dry, spreading erythema along the medial right leg up into the groin. RLE with larger area of warm erythematous skin that is irritated with no clear breakdown of the skin both anterior ly and posteriorly. NEUROLOGIC: CN 2-12 grossly intact, no sensory deficit, normal cognition, normal speech, no tremor PSYCHIATRIC: alert cooperative and oriented to person, place and time. Updated Medication List Medication Instructions Recorded Confirmed Type atorvastatin 10 mg tablet 10 mg PO HS 06/08/22 06/08/22 History levothyroxine 125 mcg tablet 125 mcg PO DAILYBB 06/08/22 06/08/22 History metformin 750 mg tablet,extended 750 mg PO DAILY 06/08/22 06/08/22 History release 24 hr cefadroxil 500 mg capsule 500 mg PO BID #14 caps 06/10/22 Rx sulfamethoxazole 800 1 tab PO BID #14 tabs 06/10/22 Rx mg-trimethoprim 160 mg tablet (Bactrim DS) Hospital Stay Data Consultations 06/08/22 17:42 ED Decision to Admit Stat Diagnostic Imagining Performed 06/08/22 14:53 US leg [US venous doppler LE RT] Stat Pending Results Patient Have Any Pending Studies at Discharge: Yes Discharge Instructions Given to Patient (Per Discharging Provider) Please continue the antibiotic course prescribed for the next 7 days. A primary care appointment is recommended within the next week to ensure a longer course of antibiotics are not needed and your leg is healing well. As we discussed please continue normal activities but keep at light and elevate your leg as much as you can. GENARO hose may help with any swelling. Continue to use petroleum jelly/Vaseline on any areas of dry skin on your feet once daily until these are healed. It was a pleasure taking care of you! Please call if you have any questions or problems. You can reach a [facility] hospitalist on duty at [facility] 24 hours a day by calling [phone]. Take care of yourself. Connie Boswell, [facility] Hospitalist
[2022-06-10] MEDS: ACETAMINOPHEN 325 MG TAB PO PRN (11:24)
== END 2022-06-10 13:26 | disposition home or self-care (01) | DRG 872 ==
LOC: EDBD → ED 14:31 → 2N 17:49 → SUATTDRO 17:49 → 2N 20:25